=== PATIENT | female | born 1985 | race Caucasian/White ===

== ENCOUNTER 2025-01-19 17:00 | Inpatient (IN) | payer MEDICAID, SELFPAY ==
[2025-01-19] VITALS (18 sets, daily range): BP systolic 100–126; BP diastolic 62–86; PULSE 62–106; RESP 16–18; TEMP 36.6; O2SAT 97–100; BMI 32.3
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
[2025-01-19] MEDS: LACTATED RINGERS 1000 ML 1,000 ML 125 ML IV (17:10)
[2025-01-19 17:35] LABS: Hematocrit 40.6 % (33.0-51.0); Hemoglobin* 14.0 gm/dL (12.0-16.0); Immature Granulocytes Pct Auto 0.8 %; Mean Corpuscular HGB Conc 35 gm/dL (32-36); Mean Corpuscular Hemoglobin 31 pg (26-34); Mean Corpuscular Volume 89 fL (80-100); RDW Coefficient of Variation % 13.8 % (11.5-15.5); Red Blood Count 4.54 m/uL (4.00-5.20); White Blood Count* 13.39 K/uL (4.50-11.00)
[2025-01-19 17:36] LABS: Amnisure Rom* POSITIVE
[2025-01-19] MEDS: AZITHROMYCIN 500 MG in 0.9 % SODIUM CHLORIDE 250 ml 250 ML 255 MG IVPB (17:38)
[2025-01-19 17:41] LABS: Immature Granulocytes Abs Auto 0.10 K/uL (0.00-0.30); Lymphocytes Absolute Auto 2.20 K/uL (0.90-2.90)
[2025-01-19 17:42] LABS: Slide Review Reflex No
[2025-01-19 17:57] LABS: Cannabinoid Screen Urine POSITIVE (Negative); Methamphetamines Screen Urine POSITIVE (Negative); Tricyclic Antidepressant Urine Negative (Negative)
[2025-01-19 19:24] LABS: Chlamydia DNA Amplified* NOT DETECTED (No Detected); GC DNA Amplified* NOT DETECTED (No Detected)
--- NOTE | 2025-01-19 19:44 | P.OBPRC_ITS ---
Procedure Time Seen by Provider: 19:49 Date of procedure: 01/19/25 Pre-op diagnosis: PROM, thick meconium, limited care, suboptimal dating, methamphetamine/THC exposure, AMA Post-op diagnosis: same Procedure Done: Global Will [facility] bill your pro fee for this procedure?: Yes Blood Loss Measurement Type: QBL (485) Bakri Used: No IV fluids (mL): 1,500 Urine Output (mL): 50 Urine Output Comment: Concentrated, dark yellow urine. No hematuria. Surgeon: Viet Up MD Anesthesia Type: Spinal Findings: Moderate adhesive disease of the rectus abdominis fascia, muscles and peritoneum Liveborn male Unremarkable uterus, bilateral fallopian tubes and ovaries Procedure Name: Repeat delivery Procedure Description: Patient was taken to the operating room with IV running. She received cefazolin and azithromycin in preoperative prophylaxis. Spinal anesthesia was administe red. Hameed catheter was inserted. She was prepped and draped in the usual sterile fashion. Anesthesia was tested and found to be adequate. A low-transverse skin incision was made with a scalpel and carried through to the underlying layer of fascia with the scalpel. The subcutaneous fat was dissected off the underlying fascia with Bovie and blunt dissection. The fascia was nicked in the midline with a scalpel, and this incision was extended laterally with scissors. Scarring between the rectus abdominis fascia, muscles and peritoneum were noted medially. The rectus muscles were in the midline. Peritoneum was identified sharply during dissection. Adhesion between the edge of the omentum and anterior abdominal wall was noted, care was made to free this from peritoneal entry to allow for adequate visualization. Bovie was used to widen this opening laterally. Maxime O retractor was inserted and tightened down, providing excellent visualization of the lower uterine segment. The bladder reflection was found to be advanced along the lower uterine segment. A bladder flap was created with a combination of sharp and blunt dissection. Low-transverse uterine incision was made with a scalpel. Immediate return of thick meconium was noted. Incision was widened bluntly. The infant's head was grasped through the hysterotomy and elevated to the hysterotomy. The remainder of the body delivered without incident with the help of fundal pressure. No nuchal cord was noted. Cord was clamped and cut after 30 seconds. was handed off to attending nurses. The placenta was delivered with gentle traction on the cord. The uterus was cleaned of all clots and debris with the dry lap pad. IV pitocin infusion was initiated. The hysterotomy was reapproximated with 0 Vicryl in a running, locked fashion. Second layer of the same suture was used in imbricating fashion to obtain hemostasis. IV TXA was requested and administered. Two additional figure of eight sutures were applied with 0 vicryl at the midline and left margins of hysterotomy due to ongoing oozing. Excellent hemostasis was noted. The adnexa were examined and noted to be normal in appearance. Uterus was reintroduced into the abdominal cavity. Excellent hemostasis again noted across hysterotomy and bladder fla. The cul-de-sac and gutters were cleansed with dampened laparotomy sponge, removing any further clots and debris. The Maxime O retractor was removed. The hysterotomy was reexamined and found to be hemostatic. The rectus muscles were examined and made hemostatic with electrocautery. Pavel was applied to the rectus muscles primarily on the right side. The fascia was reapproximated with looped 0 PDS in a running fashion. Subcutaneous fat was irrigated and Bovie used on oozing vessels. The subcutaneous fat was reapproximated with 2-0 Vicryl in a running fashion. The skin was closed with a subcuticular stitch of 3-0 monocryl. Silver dressing was applied above this. Patient tolerated procedure well was taken to recovery area in stable condition. Surgical debrief was completed. details: - Liveborn male fetus - weight: 6 lb 6 oz - APGARs were 8 and 9 at 1 and 5 minutes respectively - Cord gas was sent in the setting of category 2 FHR tracing on admission and thick meconium. Arterial pH was 7.09, pCO2 74, HC03 22, base excess -9.6 consistent with mild mixed acidemia. Complications: None Pathology: specimen obtained, sent to pathology Surgery Debrief Performed: Yes Condition: stable Disposition: floor
--- NOTE | 2025-01-19 20:03 | P.ANES_ITS ---
Anesthesia Charges Start Date/Time Anesthesia Start Date: 01/19/25 Anesthesia Start Time: 18:12 Stop Date/Time Anesthesia Stop Date: 01/19/25 Anesthesia Stop Time: 19:53 Coding CPT Codes CPT Codes: ANESTH CS DELIVERY - 04062 ([id number]) P3 - PATIENT W/SEVERE SYS DISEASE, QZ - CUSHION MAT MAKER SVC W/O SCIENCE PROFESSOR BY
--- NOTE | 2025-01-19 20:03 | W.ANESCHARGE ---
Anesthesia Charges Start Date/Time Anesthesia Start Date: 01/19/25 Anesthesia Start Time: 18:12 Stop Date/Time Anesthesia Stop Date: 01/19/25 Anesthesia Stop Time: 19:53 Coding CPT Codes CPT Codes: ANESTH CS DELIVERY - 33040 ([id number]) P3 - PATIENT W/SEVERE SYS DISEASE, QZ - DIESEL TECHNICIAN SVC W/O DESIGN COORDINATOR BY
--- NOTE | 2025-01-19 20:04 | P.NB_ITS ---
Nerve Block Nerve Block Time Seen by Provider: 19:44 Date Seen: 01/19/25 Type of block requested by surgeon for post-operative analgesia: TAP Side: bilateral Time out performed: Yes Verification of patient name: Yes Verification of date of : Yes Site marking: not applicable Name of person performing procedure: Neeraj Continuous monitoring Was continuous monitoring of O2 sat, B/P, environmental monitoring specialist, recorded every 15 minutes?: Yes Procedure Checklist: sterile prep, needles and gloves Ultrasound guided. Images saved: Yes Medications given in 5ml increments after negative aspiration: Marcaine %: 0.25 mL: 30 Needle gauge: 20 and Exparel mL: 10 Patient tolerated procedure well: Yes Block Charges Block Charge (with Pro Fee): TAP Bilateral Use of Ultrasound Machine for Block: Yes- US Guidance/pain block
[2025-01-19] MEDS: SIMETHICONE 80 MG TAB.CHEW PO (23:00)
[2025-01-19] MEDS: ACETAMINOPHEN 500 MG TABLET 1000 MG PO (23:01)
[2025-01-20] VITALS (21 sets, daily range): BP systolic 102–124; BP diastolic 64–79; PULSE 63–91; RESP 16–22; TEMP 36.5–36.9; O2SAT 96–100
[2025-01-20 04:53] LABS: Hepatitis B Surface Antigen* Negative (Negative)
[2025-01-20 05:10] LABS: Hepatitis C Virus Antibody* Negative (Negative)
[2025-01-20] MEDS: ACETAMINOPHEN 500 MG TABLET 1000 MG PO (05:13)
[2025-01-20 05:31] LABS: Hepatitis B Surface Antibody* Positive (Negative)
[2025-01-20 06:32] LABS: Hemoglobin* 11.4 gm/dL (12.0-16.0)
[2025-01-20] MEDS: DOCUSATE SODIUM 100 MG CAPSULE PO (08:00)
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
[2025-01-20] MEDS: SODIUM CHLORIDE 0.9 % (FLUSH) 10 ML SYRINGE IVF (13:44)
[2025-01-21] MEDS: ACETAMINOPHEN 500 MG TABLET 1000 MG PO (00:08)
[2025-01-21 00:11] VITALS: BP 118/75; PULSE 93; RESP 16; TEMP 36.8; O2SAT 97
[2025-01-21 03:20] LABS: HIV 1/2/P24 Combo Screen* Negative (Negative)
[2025-01-21] MEDS: IBUPROFEN 600 MG TABLET PO ×2 (06:28→12:48)
[2025-01-21 06:30] VITALS: BP 146/90; PULSE 68; RESP 16; TEMP 36.6; O2SAT 98
[2025-01-21 06:45] VITALS: BP 124/83
[2025-01-21 10:02] VITALS: BP 138/81; PULSE 84; RESP 16; TEMP 36.7; O2SAT 97
--- NOTE | 2025-01-21 12:53 | PC.SOCIAL ---
Social work note: Met with [facility] Child Protection worker, Sandra Loya, at the hospital. She had come with a police offer to meet with pt. Sandra provided her contact information, phone [phone], email: [email or web address]. Sandra requested social worker school meet with pt and assist in facilitating a phone call to her if pt agrees. Sandra would like to discuss options for placement of baby with a friend or family member as the [facility] is currently planning for pt will be placed at discharge from the hospital. Documentation of 72 hour hold on baby has been completed by police and provided to the hospital. Met with pt regarding her experience of [facility] visit. Pt shared she does not like the CPS worker assigned and does not want to meet with her without someone on my side. Pt requested social worker school stay while she spoke with aSndra by speaker phone. production manufacturing worker facilitated this. Pt shared with social worker school she would like to be discharged today and acknowledged that the baby will not be discharged with her and she plans to come back and visit the baby after she is discharged from the hospital. Shared this information with nursing who will follow up with pt's request for discharge.
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
[2025-01-21] MEDS: DOCUSATE SODIUM 100 MG CAPSULE PO (15:10)
--- NOTE | 2025-01-22 15:31 | PC.SOCIAL ---
NOTE COPIED FROM PATIENT'S BABY'S CHART PATIENT WAS DISCHARGED PATIENT = WILLIAM WALDRON, PATIENT'S MOM/MOM = LILIA SW called CPS worker, Marlene, to determine if there was an update on discharge plan. CPS states that she doesn't have any updates yet, aside from the patient's mom's requested placement isn't working out and they have sent the patient's information out to foster care families. SW met with patient's mom to see what support she needs. Patient's mom states that she is wondering about when court will be and who will represent her. Patient's mom explains that she hasn't heard from CPS yet. SW explained the only update she has is that placement hasn't been found. SW asked if when she calls CPS if patient's mom would like for SW to have CPS call her. Patient said not at this time. Mom asked if patient could be removed before court. SW states that yes they can under the hold and that the [facility] then has [address] to bring her to court, which is where it will be decided if patient will be released to her or if they will come up with a plan she needs to complete prior to reunification. Patient had no other questions at this time. SW called CPS to inquire about court date and time. Marlene states that they don't have this set yet, but will update patient once they know. Marlene states that she just got off the phone with patient's mom and answered all of the questions that SW was going to ask. CPS states that she doesn't have foster family yet, but will update SW. ELODIA went to visit patient's to discuss the answers and see if she had anymore questions. Mom was not present at this time. ELODIA went to visit with patient's mom again and CPS was present. SW left room. ELODIA called by RN stating CPS and mom would like to talk. ELODIA spoke with CPS worker, Marlene, who states that mom is upset right now and would like assistance from SW to see if mom is in a good place and if she would like to meet the foster family. ELODIA met with mom who states she would like to stay with patient for as long as possible and would like to meet the foster family. ELODIA discussed with CPS, security, RN, and manager bardistrict sales manager for discharge and meeting. Plan will be for contract negotiation manager to receive discharge instructions, then meet with the mom, followed by contract negotiation manager leaving with the baby first, as mom doesn't have a ride. SW remained on unit for support. After contract negotiation manager left with baby, SW asked if mom would like a taxi ride that we could set up. Mom declined and states she just wants to leave. SW to assist if other needs arise.
== END 2025-01-21 15:15 | disposition home or self-care (01) | DRG 540 ==
LOC: OB OUT 17:47 → OB 17:47
PROVIDERS: Advanced Practice Midwife; Admitting Provider Obstetrics & Gynecology; Visit Provider Obstetrics & Gynecology
PROC: 10D00Z1 Extraction of Products of Conception, Low, Open Approach (ICD-10-PCS; CPT 59514; principal; 2025-01-19 18:15)
DX: O34.211 Maternal care for low transverse scar from previous cesarean delivery (principal); O77.0 Labor and delivery complicated by meconium in amniotic fluid; O99.334 Smoking (tobacco) complicating childbirth; F17.210 Nicotine dependence, cigarettes, uncomplicated; G89.18 Other acute postprocedural pain; F15.90 Other stimulant use, unspecified, uncomplicated; O99.324 Drug use complicating childbirth; Z91.414 Personal history of adult intimate partner abuse; Z59.82 Transportation insecurity; Z59.819 Housing instability, housed unspecified; Z3A.38 38 weeks gestation of pregnancy; Z37.0 Single live birth
CPT/HCPCS: 01961; 36415; 76815; 76942; 80306; 84112; 85018; 85025; 86592; 86703; 86706; 86787; 86803; 86850; 86900; 86901; 87340; 87491; 87591; 88307; A4314; A9270; J0456; J0665; J0666; J0690; J1100; J1885; J2274; J2371; J2405; J2590; J2765; J7050; J7120